=== PATIENT | male | born 1995 | race Caucasian/White ===

== ENCOUNTER 2018-03-01 19:30 | Emergency (ER) | payer OTHER ==
[~2018-03-01] VITALS: Ht 188 cm; Wt 77.1 kg
[2018-03-01] MEDS ORDERED: NORCO 5-325 TA1 EAC1 PO (20:35)
[2018-03-01] MEDS ORDERED: IBUPROFEN 800800 M1 PO (20:35)
[2018-03-01] MEDS ORDERED: KEFLEX500 M1 PO (20:35)
[2018-03-01] MEDS ORDERED: ROBAXIN500 MG PO (20:51)
[2018-03-01 20:54] VITALS: BP 106/55
== END 2018-03-01 20:55 | disposition home or self-care (01) ==
LOC: M.ERS 19:30
DX: S63.592A Other specified sprain of left wrist, initial encounter (principal); S30.0XXA Contusion of lower back and pelvis, initial encounter; S20.211A Contusion of right front wall of thorax, initial encounter; S80.812A Abrasion, left lower leg, initial encounter; S40.212A Abrasion of left shoulder, initial encounter; S30.810A Abrasion of lower back and pelvis, initial encounter; V86.56XA Driver of dirt bike or motor/cross bike injured in nontraffic accident, initial encounter; Y93.55 Activity, bike riding; Y92.89 Other specified places as the place of occurrence of the external cause; Y99.8 Other external cause status

== ENCOUNTER 2021-03-04 15:57 | Emergency (ER) | payer OTHER ==
[~2021-03-04] VITALS: Ht 188 cm; Wt 79.4 kg
[~2021-03-04 15:57] MED LIST: IBUPROFEN 800800 M1 PO; KEFLEX500 M1 PO; NORCO 5-325 TA1 EAC1 PO; ROBAXIN500 MG PO
[2021-03-04] MEDS ORDERED: BACTRIM DS TAB1 EACH PO (16:15)
[2021-03-04 16:22] VITALS: BP 123/77
== END 2021-03-04 16:23 | disposition home or self-care (01) ==
LOC: M.ERS 15:57
DX: S51.802A Unspecified open wound of left forearm, initial encounter (principal); L03.114 Cellulitis of left upper limb; W57.XXXA Bitten or stung by nonvenomous insect and other nonvenomous arthropods, initial encounter; Y93.89 Activity, other specified; Y92.89 Other specified places as the place of occurrence of the external cause; Y99.8 Other external cause status